=== PATIENT | male | born 1940 | race Caucasian/White ===

== ENCOUNTER 2018-04-02 09:59 | Inpatient (IN) ==
--- NOTE | 2018-04-02 10:24 | ED ---
HPI General Chief complaint: Urogenital-Male Stated complaint: RT side flank pain x 2 days Time Seen by Provider: 04/02/18 10:12 Source: patient Mode of arrival: ambulatory Limitations: no limitations History of Present Illness HPI Narrative: Flank pain occurred after playing tennis over the weekend, no trauma Complaint: Reports other (Flank pain) Onset (ago): day(s) Duration: constant and progressively worsening Location: Reports right flank Radiation: Denies right testicle and left testicle Severity: moderate Quality: Reports aching Relieving factors: none Exacerbating factors: none Denies new medication, trauma and lifting Reports denies other symptoms; Denies discharge, urinary retention, fever and nausea/vomiting Related Data Sexually active: Yes Home Medications Medication Instructions Recorded Confirmed Multi Vitamin 1 tab PO DAILY 04/02/18 04/02/18 Zeaxanthin 1 tab PO BID 04/02/18 04/02/18 aspirin [Aspir-Low] 81 mg PO DAILY 04/02/18 04/02/18 atorvastatin [Lipitor] 40 mg PO QPM 04/02/18 04/02/18 losartan 100 mg PO DAILY 04/02/18 04/02/18 metformin 500 mg PO BID 04/02/18 04/02/18 Allergies Allergy/AdvReac Type Severity Reaction Status Date / Time No Known Allergies Allergy Verified 04/02/18 10:06 Review of Systems ROS: all other systems reviewed are negative Gastrointestinal Denies abdominal pain and Denies melena PMFSH Medical History Medical History Cataract (Acute) Diabetes (Acute) Elevated cholesterol (Acute) Hypertension (Acute) Kidney stones (Acute) Surgical History Surgical History History of knee surgery (Acute) Previous back surgery (Acute) Social History Social History Substance History: No History of Abuse Second Hand Smoke Exposure: No Smoking Status: Never smoker How Often Do You Have a Drink Containing Alcohol: Never Exam Narrative Exam Narrative: NONTOXIC PERRL, EOMI, anicteric NO JVD NON LABORED RESPIRATIONS REGULAR RHYTHM SOFT NON TENDER, no CVA tenderness No pulsatile mass, no guarding or rebound Femoral pulses equal PELVIS STABLE FROM EXTREMITIES NO LOWER EXTREMITY EDEMA FACIAL SYMMETRY STEADY GAIT, CLEAR SENTENCES AAOX3 Course Reevaluation(s) Reevaluation #1: Discussed with Prabhakar ANDERSON urology, will schedule OR for stent placement consult request coags EKG No signs of pyelonephritis sepsis or acute surgical abdomen 1150 d/w josh curry md to admit /assume care Time: 11:28 Initial Documented Vital Signs Temperature 97.9 F 04/02/18 10:02 Pulse Rate 75 04/02/18 10:02 Respiratory Rate 16 04/02/18 10:02 Blood Pressure 162/94 H 04/02/18 10:02 Pulse Oximetry 96 04/02/18 10:02 Last Documented Vital Signs Temperature 97.9 F 04/02/18 10:02 Pulse Rate 75 04/02/18 10:02 Respiratory Rate 16 04/02/18 11:50 Blood Pressure 162/94 H 04/02/18 10:02 Pulse Oximetry 96 04/02/18 10:02 Medical Decision Making MDM Narrative Medical Screen Exam Complete: Yes Emergency Medical Condition: Yes Lab Data Result diagrams: 04/02/18 10:45 04/02/18 10:45 Lab Results 04/02/18 04/02/18 04/02/18 Range/Units 10:35 10:45 10:45 CBC w Diff Auto diff final WBC 10.9 (4.0-11.0) th/mm3 RBC 4.96 (4.50-5.90) mil/mm3 Hgb 14.2 (13.0-17.0) gm/dL Hct 43.8 (39.0-51.0) % MCV 88.3 (80.0-100.0) fL MCH 28.7 (27.0-34.0) pg MCHC 32.5 (32.0-36.0) % RDW 13.3 (11.6-17.2) % Plt Count 344 (150-450) th/mm3 MPV 8.1 (7.0-11.0) fL Neut % (Auto) 75.3 H (16.0-70.0) % Lymph % (Auto) 13.5 (9.0-44.0) % [place] % (Auto) 8.5 H (0.0-8.0) % Eos % (Auto) 0.2 (0.0-4.0) % Baso % (Auto) 2.5 H (0.0-2.0) % Neut # (Auto) 8.2 H (1.8-7.7) th/mm3 Lymph # (Auto) 1.5 (1.0-4.8) th/mm3 [place] # (Auto) 0.9 (0.0-0.9) th/mm3 Eos # (Auto) 0.0 (0.0-0.4) th/mm3 Baso # (Auto) 0.3 H (0.0-0.2) th/mm3 WBC Differential . Differential Comment . Sodium 139 (136-145) meq/L Potassium 4.6 (3.5-5.1) meq/L Chloride 106 (98-107) meq/L Carbon Dioxide 24.4 (21.0-32.0) meq/L Anion Gap 9 (5-15) meq/L BUN 25 H (7-18) mg/dL Creatinine 1.50 H (0.60-1.30) mg/dL Estimated GFR 45 L (>89) mL/min Random Glucose 146 H (74-106) mg/dL Calcium 9.2 (8.5-10.1) mg/dL Ur Collection Type Clean catch Urine Color Yellow (Yellw/Straw) Urine Clarity Clear (Clear) Urine pH 5.5 (5.0-8.5) Ur Specific [place] 1.025 (1.002-1.035) Urine Protein Negative (Neg-Trace) mg/dL Urine Glucose (UA) Negative (Negative) mg/dL Urine Ketones Trace H (Negative) mg/dL Urine Occult Blood Trace (Negative) Urine Nitrate Negative (Negative) Urine Bilirubin Negative (Negative) Urine Urobilinogen 0.2 (Less than 2) mg/dL Ur Leukocyte Esterase Negative (Negative) Urine RBC 0-3 (0-3) /hpf Urine WBC 0-5 (0-5) /hpf Ur Squamous Epith Cells 0-5 (0-5) /hpf Ur Microscopic Review Microscopic reviewed Imaging Data Radiologist's impression: Abdomen/Pelvis CT 04/02/18 10:15 There are degenerative changes of the spine noted and postsurgical changes to the lower lumbar spine and right iliac bone are noted. Liver, gallbladder, spleen, pancreas, adrenals, left kidney unremarkable. There is severe right hydronephrosis and hydroureter identified. Within the distal right ureter, 2 calculi are present measuring 3.3-5.2 mm respectively. Small bowel, large bowel and appendix are normal. Atherosclerotic calcifications of the aorta are noted. There is an exophytic simple cyst right midpole kidney posteriorly measuring 3.7 cm. There are 2 1 to 2 mm nonobstructing right lower pole calculi. CONCLUSION: 1. Moderate to severe right hydronephrosis and hydroureter secondary to obstructing distal ureteral stones. Discharge Plan Discharge Disposition Patient Disposition: ED Admit(ED Internal Use Only) Discharge Condition Condition: Stable Discharge Order Discharge Orders: ED Use Only Admit Order (Routine); Ordered 04/02/18 Ordered By: Jeferson Louis Discharge Details Diagnosis: Ureter, calculus, Hydronephrosis Physicians Team ED Provider: Jeferson Louis Primary Care Provider: NON STAFF,PROVIDER Rxs /Orders / Referrals /Forms Prescriptions: No Action atorvastatin [Lipitor] 40 mg Tablet 40 mg PO QPM RF: 0 metformin 500 mg Tablet 500 mg PO BID RF: 0 aspirin [Aspir-Low] 81 mg Tablet,Delayed Release (Dr/Ec) 81 mg PO DAILY RF: 0 losartan 100 mg Tablet 100 mg PO DAILY RF: 0 Multi Vitamin 1 tab PO DAILY RF: 0 Zeaxanthin 1 tab PO BID RF: 0 Status ED Status: Admitted Patient
[2018-04-02] MEDS ORDERED: Morphine Sulfate Inj 2 MG/ML Vial IV.PUSH ONE (10:53)
[2018-04-02 10:55] LABS: Baso # (Auto) 0.3 th/mm3 (0.0-0.2); Baso % (Auto) 2.5 % (0.0-2.0); Eos % (Auto) 0.2 % (0.0-4.0); Hematocrit 43.8 % (39.0-51.0); Hemoglobin 14.2 gm/dL (13.0-17.0); Lymph # (Auto) 1.5 th/mm3 (1.0-4.8); Lymph % (Auto) 13.5 % (9.0-44.0); Mean Corpuscular HGB Conc 32.5 % (32.0-36.0); Mean Corpuscular Hemoglobin 28.7 pg (27.0-34.0); Mean Corpuscular Volume 88.3 fL (80.0-100.0); Mean Platelet Volume 8.1 fL (7.0-11.0); Mono # (Auto) 0.9 th/mm3 (0.0-0.9); Mono % (Auto) 8.5 % (0.0-8.0); Neut # (Auto) 8.2 th/mm3 (1.8-7.7); Neut % (Auto) 75.3 % (16.0-70.0); Platelet Count 344 th/mm3 (150-450); Red Blood Count 4.96 mil/mm3 (4.50-5.90); Red Cell Distribution Width 13.3 % (11.6-17.2); White Blood Count 10.9 th/mm3 (4.0-11.0)
[2018-04-02 11:03] LABS: Bilirubin,Urine Negative (Negative); Clarity,Urine Clear (Clear); Color,Urine Yellow (Yellw/Straw); Glucose,Urine (UA) Negative (Negative); Leukocyte Esterase,Urine Negative (Negative); Nitrite,Urine Negative (Negative); PH,Urine 5.5 (5.0-8.5); Specific Gravity,Urine 1.025 (1.002-1.035); Urobilinogen,Urine 0.2 mg/dL (Less than 2)
[2018-04-02 11:06] LABS: Potassium 4.6 meq/L (3.5-5.1)
[2018-04-02 11:08] LABS: Calcium 9.2 mg/dL (8.5-10.1); Carbon Dioxide 24.4 meq/L (21.0-32.0)
--- NOTE | 2018-04-02 11:09 | CT ---
EXAM DATE: 04/02/2018 10:45 AM EST AGE/SEX: 77 years / Male INDICATIONS: Right flank pain with nausea. CLINICAL DATA: This is the patient's initial encounter. Patient reports that signs and symptoms have been present for 2 days and indicates a pain score of 7/10. MEDICAL/SURGICAL HISTORY: Renal calculi. Hypertension. Diabetes. Fusion, lumbar. RADIATION DOSE: 24.76 CTDI (mGy) COMPARISON: No prior exams available for comparison. TECHNIQUE: Multiple contiguous axial images were obtained through the abdomen. Images were obtained using multiple row detector helical technique. Using automated exposure control and adjustment of the mA and/or kV according to patient size, radiation dose was kept as low as reasonably achievable to o btain optimal diagnostic quality images. DICOM format image data is available electronically for rev iew and comparison. FINDINGS: There are degenerative changes of the spine noted and postsurgical changes to the lower lumbar spine and right iliac bone are noted. Liver, gallbladder, spleen, pancreas, adrenals, left kidney unremarka ble. There is severe right hydronephrosis and hydroureter identified. Within the distal right ureter, 2 calculi are present measuring 3.3-5.2 mm respectively. Small bowel, large bowel and appendix are n ormal. Atherosclerotic calcifications of the aorta are noted. There is an exophytic simple cyst right midpole kidney posteriorly measuring 3.7 cm. There are 2 1 to 2 mm nonobstructing right lower pole c alculi. CONCLUSION: 1. Moderate to severe right hydronephrosis and hydroureter secondary to obstructing distal ureteral stones. Electronically signed by: Lowell Santoyo MD Board Certified Radiologist 04/02/2018 11:08 AM EST
[2018-04-02 11:10] LABS: RBC,Urine 0-3 /hpf (0-3); Squamous Epithelial Cell,Urine 0-5 /hpf (0-5); WBC,Urine 0-5 /hpf (0-5)
[2018-04-02] MEDS ORDERED: Morphine Inj 4 MG/ML Vial IV.PUSH ONE (11:15)
[2018-04-02 12:01] LABS: Activated Partial Thrombo Time 25.4 sec (23.4-31.7); Prothrombin Time 10.4 sec (9.8-11.6)
[2018-04-02] MEDS ORDERED: Acetaminophen 325 MG Tablet PO PRN (12:50)
[2018-04-02] MEDS ORDERED: Bisacodyl 10 MG Supp RECTAL PRN (12:50)
--- NOTE | 2018-04-02 12:55 | P.HPIM ---
History of Present Illness Primary Care Physician: PROVIDER NON STAFF Chief Complaint: abd paon right flank pain History of Present Illness: Cecilia vazquez 69-year-old male with past medical history of hypertension, hyperlipidemia, diabetes with history of previous kidney stones presented to the emergency room with complaints of right flank pain and right-sided abdominal pain. Patient states pain intermittent for the past 2 days also associated nausea, no vomiting. He also has associated intermittent hematuria for the past week. No fever or chills. No constipation. Denies chest pain or shortness of breath he is saturating well on room air. Pain is severe 10 out of 10 in intensity, relieved by pain medications. Inpatient Certification Inpatient Certification: I certify that the inpatient services were ordered in accordance with Medicare regulations governing the order. This includes certification that hospital inpatient services are reasonable and necessary and in the case of services not specified as inpatient-only under 42 CFR 419.22(n), that they are appropriately provided as inpatient services in accordance to with the 2-midnight benchmark under 43 CFR 412.3(e) Estimated Total Length of Stay (Days): 3 Plans for Post Hospital Care: Home Review of Systems Review of Systems: all other systems reviewed are negative [facility] Medical History Medical History Cataract (Acute) Diabetes (Acute) Elevated cholesterol (Acute) Hypertension (Acute) Kidney stones (Acute) Surgical History Surgical History History of knee surgery (Acute) Previous back surgery (Acute) Family History Family History Other Macular degeneration Social History Social History Substance History: No History of Abuse Second Hand Smoke Exposure: No Smoking Status: Never smoker How Often Do You Have a Drink Containing Alcohol: Never Immunization History Tetanus Immunization: >5 Years Medications and Allergies Allergies Allergy/AdvReac Type Severity Reaction Status Date / Time No Known Allergies Allergy Verified 04/02/18 10:06 Home Medications Medication Instructions Recorded Confirmed Type Multi Vitamin 1 tab PO DAILY 04/02/18 04/02/18 History Zeaxanthin 1 tab PO BID 04/02/18 04/02/18 History aspirin [Aspir-Low] 81 mg PO DAILY 04/02/18 04/02/18 History atorvastatin [Lipitor] 40 mg PO QPM 04/02/18 04/02/18 History losartan 100 mg PO DAILY 04/02/18 04/02/18 History metformin 500 mg PO BID 04/02/18 04/02/18 History Active Medications: Active Medications Acetaminophen (Tylenol) 650 mg PO Q4H PRN PRN Reason: Temp > 100.4 Al Hydroxide/Mg Hydroxide (Milk Of Magnesia Liq) 30 ml PO Q12H PRN PRN Reason: Mild Constipation Bisacodyl (Dulcolax Supp) 10 mg RECTAL DAILY PRN PRN Reason: SEVERE CONSITIPATION Sodium Chloride (Ns Inj) 1,000 mls @ 100 mls/hr IV.CONT .Q10H RAMONA Lactulose (Lactulose Liq) 30 ml PO DAILY PRN PRN Reason: SEVERE CONSITIPATION Ondansetron HCl (Zofran Inj) 4 mg IV.PUSH Q6H PRN PRN Reason: NAUSEA OR VOMITING Senna/Docusate Sodium (Sharita-Colace) 1 tab PO BID RAMONA Sennosides (Senokot) 17.2 mg PO Q12H PRN PRN Reason: Moderate Constipation Sodium Chloride (Ns Flush) 2 ml IV.FLUSH BID RAMONA Sodium Chloride (Ns Flush) 2 ml IV.FLUSH PRN PRN PRN Reason: FLUSH AFTER USING IV ACCESS Physical Exam Vital signs: Vital Signs 04/02/18 10:02 04/02/18 11:50 04/02/18 12:48 Temperature 97.9 F Pulse Rate 75 75 Respiratory Rate 16 16 16 Blood Pressure 162/94 H 154/92 H Pulse Oximetry 96 Intake & Output 04/01/18 04/02/18 04/02/18 18:59 06:59 18:59 Weight 102 kg Narrative: GENERAL: Pleasant 77 yo male, in bed appears in distress with abd pain SKIN: Warm and dry. HEAD: Atraumatic. Normocephalic. EYES: Pupils equal and round. No scleral icterus. No injection or drainage. ENT: No nasal bleeding or discharge. Mucous membranes pink and moist. NECK: Trachea midline. No JVD. CARDIOVASCULAR: Regular rate and rhythm. RESPIRATORY: No accessory muscle use. Clear to auscultation. Breath sounds equal bilaterally. GASTROINTESTINAL: Abdomen soft, obese, tenderness to palpation RUQ and RLQ . Right flank pain no CVT. MUSCULOSKELETAL: Extremities without clubbing, cyanosis, or edema. No obvious deformities. NEUROLOGICAL: Awake and alert. No obvious cranial nerve deficits. Motor grossly within normal limits. Five out of 5 muscle strength in the arms and legs. Normal speech. PSYCHIATRIC: Appropriate mood and affect; insight and judgment normal. Results Labs CBC & Chem 7: 04/02/18 10:45 04/02/18 10:45 Imaging Impressions Abdomen/Pelvis CT 04/02/18 10:15 There are degenerative changes of the spine noted and postsurgical changes to the lower lumbar spine and right iliac bone are noted. Liver, gallbladder, spleen, pancreas, adrenals, left kidney unremarkable. There is severe right hydronephrosis and hydroureter identified. Within the distal right ureter, 2 calculi are present measuring 3.3-5.2 mm respectively. Small bowel, large bowel and appendix are normal. Atherosclerotic calcifications of the aorta are noted. There is an exophytic simple cyst right midpole kidney posteriorly measuring 3.7 cm. There are 2 1 to 2 mm nonobstructing right lower pole calculi. CONCLUSION: 1. Moderate to severe right hydronephrosis and hydroureter secondary to obstructing distal ureteral stones. Caprini VTE Risk Assessment Caprini VTE Risk Assessment: No/Low Risk (score <= 1) Caprini Risk Assessment Model: Point Value = 1 Point Value = 2 Point Value = 3 Point Value = 5 Age 41-60 Minor surgery BMI > 25 kg/m2 Swollen legs Varicose veins or History of unexplained or recurrent spontaneous Oral contraceptives or hormone replacement Sepsis (< 1 month) Serious lung disease, including pneumonia (< 1 month) Abnormal pulmonary function Acute myocardial infarction Congestive heart failure (< 1 month) History of inflammatory bowel disease Medical patient at bed rest Age 61-74 Arthroscopic surgery Major open surgery (> 45 min) Laparoscopic surgery (> 45 min) Malignancy Confined to bed (> 72 hours) Immobilizing plaster cast Central venous access Age >= 75 History of VTE Family history of VTE Factor V Leiden Prothrombin [id number] Lupus anticoagulant Anticardiolipin antibodies Elevated serum homocysteine Heparin-induced thrombocytopenia Other congenital or acquired thrombophilia Stroke (< 1 month) Elective arthroplasty Hip, pelvis, or leg fracture Acute spinal cord injury (< 1 month) Prophylaxis Regimen: Total Risk Factor Score Risk Level Prophylaxis Regimen 0-1 Low Early ambulation 2 Moderate Order ONE of the following: *Sequential Compression Device (SCD) *Heparin 5000 units SQ BID 3-4 Higher Order ONE of the following medications: *Heparin 5000 units SQ TID *Enoxaparin/Lovenox 40 mg SQ daily (WT < 150 kg, CrCl > 30 mL/min) *Enoxaparin/Lovenox 30 mg SQ daily (WT < 150 kg, CrCl > 10-29 mL/min) *Enoxaparin/Lovenox 30 mg SQ BID (WT < 150 kg, CrCl > 30 mL/min) AND/OR *Sequential Compression Device (SCD) 5 or more Highest Order ONE of the following medications: *Heparin 5000 units SQ TID (Preferred with Epidurals) *Enoxaparin/Lovenox 40 mg SQ daily (WT < 150 kg, CrCl > 30 mL/min) *Enoxaparin/Lovenox 30 mg SQ daily (WT < 150 kg, CrCl > 10-29 mL/min) *Enoxaparin/Lovenox 30 mg SQ BID (WT < 150 kg, CrCl > 30 mL/min) AND *Sequential Compression Device (SCD) Assessment and Plan Plan 77 yo male with Right flank pain / abd pain Moderate to severe right hydronephrosis and hydroureter secondary to obstructing distal ureteral stones. LENIN with Cr of 1.[address] a/p reviewed and findings discussed with the patient, ER physician and Dr Radford urology Transfer patient to [facility] for stent placement Pain meds per pain scale IVF with NS Accu and ISS Dr Radford uro ff plan for stent Restart home meds as appropriate DVT ppx scd teds no chemoical ppx plan for sx DC whern cleared by urology and when kidney function is back to normal
[2018-04-02] MEDS ORDERED: Dextrose 50% in Water 50 ML Vial IV.PUSH PRN (13:06)
--- NOTE | 2018-04-02 15:21 | P.CONURO ---
History of Present Illness Service: [facility] Med: Dr. Love Consult date: 04/02/18 Requesting Physician: Nely Love Reason for Consult: Obstruct. stone RT, RT kidney colic, RT hydronephrosis Primary Care Provider: PROVIDER NON STAFF in [place]. Chief Complaint: abd paon right flank pain History of Present Illness: 2day hx of RT flank and lower abd pains. Nausea, no vomiting. CT scan: obstructing 5 mm stone in distal RT ureter, hydroureter, hydronephrosis. Also, Non obstruct. stones in RT kidney. Hx of stone laser lithotripsy, stent in [place]. Pt. does not know whether he has had a stone metabolic W/U or not. Hx of multiple TURPs on a "large" prostate. Now voiding well with good flow. Patient wants stent placement and stone laser lithotripsy done at same time, but he is told that today only a stent will be placed and that lithotripsy will be done at a later date, either in [facility] or in [place] if he decides to return to his Urologist there. He agrees to have the stent placed today. present for the entire visit. [facility] - History History Provided By: Patient, Family Member () - Medical History Medical History: Medical History (Last Updated 04/02/18 @ 15:07 by Kelechi Espinal MD) Cataract Decreased vision Diabetes Elevated cholesterol Hypertension Kidney stones Kidney stones Prostate disorder Prostate disorder Prostate disorder - Surgical History Surgical History: Surgical History (Last Reviewed 04/02/18 @ 13:59 by Dimitri Nichole) History of knee surgery Previous back surgery - Family History Family History: Family History (Last Reviewed 04/02/18 @ 12:54 by Nely Love MD) Other Macular degeneration - Social History I have reviewed the patient's Social History: Yes - Tobacco History Second Hand Smoke Exposure: No Tobacco Use In Past 30 Days: No Smoking Status: Never smoker - Alcohol History How Often Do You Have a Drink Containing Alcohol: Never - Substance Use History Substance History: No History of Abuse - Immunization History Tetanus Immunization: >5 Years Medications and Allergies Active Medications: Active Medications Acetaminophen (Tylenol) 650 mg PO Q4H PRN PRN Reason: Temp > 100.4 Al Hydroxide/Mg Hydroxide (Milk Of Magnesia Liq) 30 ml PO Q12H PRN PRN Reason: Mild Constipation Bisacodyl (Dulcolax Supp) 10 mg RECTAL DAILY PRN PRN Reason: SEVERE CONSITIPATION Dextrose (D50w Vial) 50 ml IV.PUSH UNSCH PRN PRN Reason: PER HYPOGLYCEMIA PROTOCOL Glucagon (Glucagon Inj) 1 mg OTHER PRN PRN PRN Reason: for Hypoglycemia Protocol Sodium Chloride (Ns Inj) 1,000 mls @ 100 mls/hr IV.CONT .Q10H RAMONA Insulin Aspart (Novolog Insulin Correctional Sugar Inj) 0 unit SQ ACHS RAMONA; Protocol Lactulose (Lactulose Liq) 30 ml PO DAILY PRN PRN Reason: SEVERE CONSITIPATION Ondansetron HCl (Zofran Inj) 4 mg IV.PUSH Q6H PRN PRN Reason: NAUSEA OR VOMITING Senna/Docusate Sodium (Sharita-Colace) 1 tab PO BID [facility] Sennosides (Senokot) 17.2 mg PO Q12H PRN PRN Reason: Moderate Constipation Sodium Chloride (Ns Flush) 2 ml IV.FLUSH BID RAMONA Sodium Chloride (Ns Flush) 2 ml IV.FLUSH PRN PRN PRN Reason: FLUSH AFTER USING IV ACCESS Allergies Allergy/AdvReac Type Severity Reaction Status Date / Time No Known Allergies Allergy Verified 04/02/18 10:06 Home Medications Medication Instructions Recorded Confirmed Type Multi Vitamin 1 tab PO DAILY 04/02/18 04/02/18 History Zeaxanthin 1 tab PO BID 04/02/18 04/02/18 History aspirin [Aspir-Low] 81 mg PO DAILY 04/02/18 04/02/18 History atorvastatin [Lipitor] 40 mg PO QPM 04/02/18 04/02/18 History losartan 100 mg PO DAILY 04/02/18 04/02/18 History metformin 500 mg PO BID 04/02/18 04/02/18 History Physical Exam Vital Signs - 24 hr 04/02/18 10:02 04/02/18 11:50 04/02/18 12:48 Temperature 97.9 F Pulse Rate 75 75 Respiratory Rate 16 16 16 Blood Pressure 162/94 H 154/92 H Pulse Oximetry 96 04/02/18 13:57 Temperature Pulse Rate 80 Respiratory Rate 16 Blood Pressure 162/89 H Pulse Oximetry 97 Physical Exam: GENERAL: This is a well-nourished, well-developed patient, in no apparent distress after receiving pain medication. SKIN: No rashes, ecchymoses or lesions. Cool and dry. Lumbo-sacral surgical scar. HEAD: Atraumatic. Normocephalic. No temporal or scalp tenderness. EYES: Pupils equal round and reactive. Extraocular motions intact. No scleral icterus. No injection or drainage. ENT: Nose without bleeding, purulent drainage or septal hematoma. Throat without erythema, tonsillar hypertrophy or exudate. Uvula midline. Airway patent. NECK: Trachea midline. No JVD or lymphadenopathy. Supple, nontender, no meningeal signs. CARDIOVASCULAR: Regular rate and rhythm without murmurs, gallops, or rubs. RESPIRATORY: Clear to auscultation. Breath sounds equal bilaterally. No wheezes , rales, or rhonchi. GASTROINTESTINAL: Abdomen soft, mild direct tenderness RLQ, nondistended. No hepato-splenomegaly, or palpable masses. No guarding. GENITOURINARY: FLANK: RT tenderness to gentle fist percussion. EXT. GENIT: Male. RECTUM: No masses, stool brown. PROSTATE: Flat, smooth with central post TURP depression. Non tender. Cannot determine true size. MUSCULOSKELETAL: Extremities without clubbing, cyanosis, or edema. No joint tenderness, effusion, or edema noted. No calf tenderness. Negative Homans sign bilaterally. NEUROLOGICAL: Awake and alert. Cranial nerves II through XII intact. Motor and sensory grossly within normal limits. Five out of 5 muscle strength in all muscle groups. Normal speech. Lab results reviewed: Yes Laboratory Results - last 24 hr 04/02/18 04/02/18 04/02/18 10:35 10:45 10:45 CBC w Diff Auto diff final WBC 10.9 RBC 4.96 Hgb 14.2 Hct 43.8 MCV 88.3 MCH 28.7 MCHC 32.5 RDW 13.3 Plt Count 344 MPV 8.1 Neut % (Auto) 75.3 H Lymph % (Auto) 13.5 [place] % (Auto) 8.5 H Eos % (Auto) 0.2 Baso % (Auto) 2.5 H Neut # (Auto) 8.2 H Lymph # (Auto) 1.5 [place] # (Auto) 0.9 Eos # (Auto) 0.0 Baso # (Auto) 0.3 H WBC Differential . Differential Comment . PT INR APTT Sodium 139 Potassium 4.6 Chloride 106 Carbon Dioxide 24.4 Anion Gap 9 BUN 25 H Creatinine 1.50 H Estimated GFR 45 L Random Glucose 146 H Calcium 9.2 Ur Collection Type Clean catch Urine Color Yellow Urine Clarity Clear Urine pH 5.5 Ur Specific [place] 1.025 Urine Protein Negative Urine Glucose (UA) Negative Urine Ketones Trace H Urine Occult Blood Trace Urine Nitrate Negative Urine Bilirubin Negative Urine Urobilinogen 0.2 Ur Leukocyte Esterase Negative Urine RBC 0-3 Urine WBC 0-5 Ur Squamous Epith Cells 0-5 Ur Microscopic Review Microscopic reviewed 04/02/18 11:40 CBC w Diff WBC RBC Hgb Hct MCV MCH MCHC RDW Plt Count MPV Neut % (Auto) Lymph % (Auto) [place] % (Auto) Eos % (Auto) Baso % (Auto) Neut # (Auto) Lymph # (Auto) [place] # (Auto) Eos # (Auto) Baso # (Auto) WBC Differential Differential Comment PT 10.4 INR 1.0 APTT 25.4 Sodium Potassium Chloride Carbon Dioxide Anion Gap BUN Creatinine Estimated GFR Random Glucose Calcium Ur Collection Type Urine Color Urine Clarity Urine pH Ur Specific [place] Urine Protein Urine Glucose (UA) Urine Ketones Urine Occult Blood Urine Nitrate Urine Bilirubin Urine Urobilinogen Ur Leukocyte Esterase Urine RBC Urine WBC Ur Squamous Epith Cells Ur Microscopic Review Result Diagrams: 04/02/18 10:45 04/02/18 10:45 Personally reviewed images: Yes Imaging: ITS Impressions Abdomen/Pelvis CT 04/02/18 10:15 There are degenerative changes of the spine noted and postsurgical changes to the lower lumbar spine and right iliac bone are noted. Liver, gallbladder, spleen, pancreas, adrenals, left kidney unremarkable. There is severe right hydronephrosis and hydroureter identified. Within the distal right ureter, 2 calculi are present measuring 3.3-5.2 mm respectively. Small bowel, large bowel and appendix are normal. Atherosclerotic calcifications of the aorta are noted. There is an exophytic simple cyst right midpole kidney posteriorly measuring 3.7 cm. There are 2 1 to 2 mm nonobstructing right lower pole calculi. CONCLUSION: 1. Moderate to severe right hydronephrosis and hydroureter secondary to obstructing distal ureteral stones. Assessment and Plan - Assessment (1) Ureter, calculus Code(s): N20.1 - Calculus of ureter Status: Acute Onset Date: ~03/31/18 (2) Renal colic on right side Code(s): N23 - Unspecified renal colic Status: Acute Onset Date: ~03/31/18 (3) Hydronephrosis Code(s): N13.30 - Unspecified hydronephrosis Status: Acute Onset Date: ~ - Plan Will place Urinary stent into RT ureter and kidney today. Time depends on OR availability. Pt. should be able to be discharged later today if no medical problems. Refer to [facility] Drs. Medrano, and/or Froylan for stone removal at a later date. Discussed Condition With: Dr. Louis, nurse, patient, . Discharge Planning: Hopefully discharge when recovers from the planned general anesthesia later today. (3) Hydronephrosis Qualifiers: Hydronephrosis type: with renal calculous obstruction Qualified Code(s): N13.2 - Hydronephrosis with renal and ureteral calculous obstruction
[2018-04-02] MEDS ORDERED: fentaNYL Citrate Inj 250 MCG/5 ML Ampul ONE (18:39)
[2018-04-02] MEDS: Insulin NovoLOG Aspart Correctional Sugar Inj SQ SCH ×2 (19:00→22:23)
[2018-04-02] MEDS: Sod Chloride 0.9% Inj 1,000 ML IV.CONT SCH ×2 (21:10→23:47)
--- NOTE | 2018-04-02 21:23 | P.OP ---
- Preoperative Diagnosis (1) Ureter, calculus (2) Renal colic on right side (3) Hydronephrosis (4) Right ureter dilated - Postoperative Diagnosis (1) Ureter, calculus Comment: Distal RT ureter near UVJ. (2) Renal colic on right side (3) Hydronephrosis (4) Right ureter dilated Date of procedure: 04/02/18 Procedure: 1: Cystoscopy 2: Remove tiny bright yellow stone from bladder 3: Placement of 6 Fr. 26 CM double J urinary stent into RT ureter and kidney. Anesthesia: GETA Surgeon: Kelechi Espinal MD Estimated blood loss (mL): 0 Pathology: other (Tiny 1mm bright yellow stone for stone analysis) Operation and Findings: Patient was placed on the urology table in the cystoscopy suite. In the supine position he was given a general anesthetic with endotracheal airway. His body was then positioned appropriately for a cystoscopy with the legs in stirrups in the dorsal lithotomy position. He was then prepped with Betadine on the genitalia medial thighs up to the umbilicus. He was then draped sterilely. 2 timeouts were then done first for the patient identification procedure on the right side and physician and then a fire timeout was done. A screening fluoroscopy was done. No stone was visualized on the fluoroscopic image. First cystoscopy was done through a 20 Grenadian cystoscope passing in a retrograde fashion under direct vision using a 30 degree lens. Then the bladder interior was visualized with a 70 degree lens. Cystoscopic findings are as follows. Urethra negative without stricture. Prostate wide open post TURP. Bladder interior negative with mild muscle trabeculation. No bladder tumors or bladder lesions seen. On the bladder floor are numerous tiny bright yellow crystals. The trigone shows a normal left ureter. There is red inflammation around the right ureter with edema. The ureteral meatus is difficult to visualize initially. Many fragments were seen on the bladder floor. Also 1 larger stone was seen approximately 1 mm. It was removed with alligator grasper and placed in a cup. The 70 degree lens was then replaced with the 30 degree lens for the remainder of the procedure. The right ureteral meatus was found only by passing a guidewire positioned just barely out of the tip of a 6 Grenadian ureteral catheter. The guidewire was seen to pass cephalad into the ureter. The ureteral catheter then was passed over the guidewire for 1-2 cm into the distal right ureter. The guidewire was then passed easily all the way into the kidney where it was seen to coil in the hydronephrotic kidney. The 6 Grenadian ureteral catheter was then removed over the guidewire. No radiologic contrast was used during the procedure. Then over the guidewire a 6 Grenadian, 26 cm double-J urinary stent was passed all the way into the kidney. The upper end was seen on fluoroscopy to coil in the kidney. The lower end was then positioned according to the marking on the distal end of the stent. With the pusher still in place the pullout string was removed and then the guidewire was removed. The distal end of the stent was then seen to coil inside the bladder in the proper location. A final fluoroscopic image showed that both ends of the stent coiled appropriately the upper end in the kidney and the lower end in the bladder. The bladder was drained into a crane and all the fluid was then poured through a stone strainer. The stone and any tiny fragments were then sent to the lab for stone analysis. The patient tolerated the procedure well, there were no surgical or anesthetic complications and he was found to be stable in the recovery room. Plan patient will be transferred to a regular room and will be kept overnight and discharged when medically stable. He will need follow-up with a local urologist for removal of the stent, ureteroscopy to see if there is stone still present in the ureter and if so then laser lithotripsy. Recommend follow-up with [place] urologists, Drs. Muse and/or Froylan.
[2018-04-02] MEDS ORDERED: Ketorolac Inj 30 MG/ML (IVP) Vial IV.PUSH PRN (21:51)
[2018-04-02] MEDS: Senna/Docusate Sodium 8.6/50 MG Tablet PO SCH (21:52)
[2018-04-02 23:00] VITALS: RESP 18
--- NOTE | 2018-04-03 00:27 | ECG ---
Date Performed: 04/02/2018 Time Performed: 11:46:10 PTAGE: 77 years EKG: Sinus rhythm NORMAL ECG NO PREVIOUS TRACING DOCTOR: Blake Heredia Interpretating Date/Time 04/03/2018 00:27:03
[2018-04-03 01:53] VITALS: O2SAT 97
[2018-04-03 07:25] LABS: Baso % (Auto) 0.3 % (0.0-2.0); Eos % (Auto) 0.1 % (0.0-4.0); Hematocrit 37.2 % (39.0-51.0); Hemoglobin 12.5 gm/dL (13.0-17.0); Lymph # (Auto) 1.1 th/mm3 (1.0-4.8); Lymph % (Auto) 15.4 % (9.0-44.0); Mean Corpuscular HGB Conc 33.5 % (32.0-36.0); Mean Corpuscular Hemoglobin 29.9 pg (27.0-34.0); Mean Corpuscular Volume 89.4 fL (80.0-100.0); Mono # (Auto) 0.5 th/mm3 (0.0-0.9); Mono % (Auto) 6.7 % (0.0-8.0); Neut # (Auto) 5.8 th/mm3 (1.8-7.7); Neut % (Auto) 77.5 % (16.0-70.0); Platelet Count 268 th/mm3 (150-450); Red Blood Count 4.16 mil/mm3 (4.50-5.90); Red Cell Distribution Width 13.9 % (11.6-17.2); White Blood Count 7.4 th/mm3 (4.0-11.0)
[2018-04-03 07:45] LABS: Calcium 8.4 mg/dL (8.5-10.1); Potassium 4.4 meq/L (3.5-5.1)
[2018-04-03 09:21] VITALS: BP 126/73; PULSE 59; TEMP 97.9
[2018-04-03] MEDS: Senna/Docusate Sodium 8.6/50 MG Tablet PO SCH (10:13)
[2018-04-03] MEDS: Sod Chloride 0.9% Inj 1,000 ML IV.CONT SCH (10:13)
[2018-04-03] MEDS: Insulin NovoLOG Aspart Correctional Sugar Inj SQ SCH (10:13)
--- NOTE | 2018-04-03 11:46 | P.PNIM ---
Subjective Interval history: Nursing denies any acute deteriorations overnight. Patient himself has no complaints. No nausea no vomiting. Pain is very bearable. Much improved since admission. Status post cystoscopy right stent placement. Physical Exam Vital signs: Vital Signs 04/02/18 11:50 04/02/18 12:48 04/02/18 13:57 Temperature Pulse Rate 75 80 Respiratory Rate 16 16 16 Blood Pressure 154/92 H 162/89 H Pulse Oximetry 97 04/02/18 15:30 04/02/18 17:56 04/02/18 18:00 Temperature 98.9 F Pulse Rate 77 80 77 Respiratory Rate 16 20 20 Blood Pressure 166/90 H 169/92 H 144/80 H Pulse Oximetry 97 96 96 04/02/18 21:00 04/02/18 21:15 04/02/18 21:40 Temperature 97.7 F 98.6 F Pulse Rate 82 80 80 Respiratory Rate 16 18 16 Blood Pressure 166/84 H 165/82 H 169/81 H Pulse Oximetry 95 95 94 L 04/02/18 22:00 04/03/18 00:00 04/03/18 04:00 Temperature 98.1 F 98.1 F 97.6 F Pulse Rate 77 68 60 Respiratory Rate 18 18 18 Blood Pressure 168/95 H 117/57 L 103/59 L Pulse Oximetry 95 97 97 04/03/18 08:00 Temperature 97.9 F Pulse Rate 59 L Respiratory Rate 18 Blood Pressure 126/73 Pulse Oximetry Intake & Output 04/02/18 04/03/18 04/03/18 18:59 06:59 18:59 Intake Total 1899 / 1900 Balance 190 / 1900 Weight 102 kg 102.9 kg Intake: IV 1000 / 1000 NS Inj 1,000 ML @ 100 mls/hr IV 1000 / 1000 .CONT .Q10H RAMONA Rx#:[id number] Oral 200 / 200 Anesthesia Amount 700 / 700 Other: # Voids 2 Date of Last Bowel Movement 04/02/18 # Bowel Movements 0 Weight On Admission 102 kg Narrative: No right flank tenderness to palpation, no left flank tenderness to palpation Abdomen soft, nontender Clear lungs bilaterally, unlabored breathing Heart sounds regular rate and rhythm No lower extremity edema Awake, alert, no acute distress Results - Labs CBC & Chem 7: 04/03/18 05:25 04/03/18 05:25 Laboratory Results - last 24 hr 04/02/18 04/02/18 04/02/18 11:40 15:02 21:15 WBC RBC Hgb Hct MCV MCH MCHC RDW Plt Count MPV Neut % (Auto) Lymph % (Auto) [place] % (Auto) Eos % (Auto) Baso % (Auto) Neut # (Auto) Lymph # (Auto) [place] # (Auto) Eos # (Auto) Baso # (Auto) WBC Differential Differential Comment PT 10.4 INR 1.0 APTT 25.4 Sodium Potassium Chloride Carbon Dioxide Anion Gap BUN Creatinine Estimated GFR POC Glucose 136 H 136 H Random Glucose Calcium 04/03/18 04/03/18 04/03/18 02:13 05:25 05:25 WBC 7.4 RBC 4.16 L Hgb 12.5 L Hct 37.2 L MCV 89.4 MCH 29.9 MCHC 33.5 RDW 13.9 Plt Count 268 MPV 8.0 Neut % (Auto) 77.5 H Lymph % (Auto) 15.4 [place] % (Auto) 6.7 Eos % (Auto) 0.1 Baso % (Auto) 0.3 Neut # (Auto) 5.8 Lymph # (Auto) 1.1 [place] # (Auto) 0.5 Eos # (Auto) 0.0 Baso # (Auto) 0.0 WBC Differential . Differential Comment Auto diff final PT INR APTT Sodium 143 Potassium 4.4 Chloride 106 Carbon Dioxide 30.0 Anion Gap 7 BUN 22 H Creatinine 1.46 H Estimated GFR 47 L POC Glucose 179 H Random Glucose 145 H Calcium 8.4 L D 04/03/18 08:20 WBC RBC Hgb Hct MCV MCH MCHC RDW Plt Count MPV Neut % (Auto) Lymph % (Auto) [place] % (Auto) Eos % (Auto) Baso % (Auto) Neut # (Auto) Lymph # (Auto) [place] # (Auto) Eos # (Auto) Baso # (Auto) WBC Differential Differential Comment PT INR APTT Sodium Potassium Chloride Carbon Dioxide Anion Gap BUN Creatinine Estimated GFR POC Glucose 132 H Random Glucose Calcium Assessment and Plan - Plan 77-year-old white male was admitted with right flank pain and possible obstructing right nephrolithiasis causing hydronephrosis and hydroureter Right flank pain Status post cystoscopy and stone removal and stent placement Pain much improved since admission, tolerating p.o. Patient has met maximal benefit from hospitalization is clinically stable for discharge, instructed to follow-up closely with urology.
== END 2018-04-03 12:17 | disposition home or self-care (01) | DRG 660 ==
LOC: PHED 09:59 → PHEDA 11:53 → HSDI 16:08 → N06 21:57
PROVIDERS: ADMIT Hospitalist; ATTEND Hospitalist
CPT/HCPCS: 74176; 80048; 81001; 82365; 82370; 82948; 82962; 85025; 85610; 85730; 88300; 93005; 97161; C1769; C2617; G8987; G8988; J1580; J1940; J2250; J2270; J2405; J3010; J7030